=== PATIENT | male | born 1970 | race Caucasian/White ===

== ENCOUNTER 2020-12-25 09:46 | Day surgery (SDC) | payer OTHER ==
--- NOTE | 2020-12-24 12:00 | RAD REPORT ---
EXAM DESCRIPTION: Ariella Tesfaye (2 Views)12/24/2020 11:55 am CLINICAL HISTORY: Preop cardiac catheterization COMPARISON: 2014 FINDINGS: The lungs appear clear of acute infiltrate. The heart is normal size IMPRESSION: No acute abnormalities displayed
[2020-12-25] MEDS ORDERED: NA CHLORIDE 0.9% 500 ML ONE (09:50)
[2020-12-25 10:41] VITALS: TEMP 98.1
[2020-12-25] MEDS ORDERED: HEPA 1000U/500MLS 1,000 UNIT/500 ML BAG IV ONE (11:38)
[2020-12-25] MEDS ORDERED: MIDAZOLAM HCL 5 ML ONE (11:52)
[2020-12-25] MEDS ORDERED: NA CHLORIDE 0.9% 0 ML ONE (11:52)
[2020-12-25] MEDS ORDERED: FENTANYL CITR 100 MCG/2 ML ONE (11:52)
[2020-12-25] MEDS ORDERED: ATROPINE SULF 1 MG/10 ML SYR IV ONE (11:52)
[2020-12-25 12:16] LABS: Absolute Lymphocytes (CBC) 0.8 K/uL (0.7-4.9); Basophils % 0.5 % (0-1.3); Hematocrit 43.7 % (39.6-49.0); Lymphocytes % 15.9 % (15.3-44.8); MPV 8.4 fL (7.6-11.3); RBC Red Blood Cell Count 4.19 M/uL (4.33-5.43)
[2020-12-25 12:20] LABS: Protime INR 0.99
[2020-12-25 12:26] LABS: Potassium 3.9 mmol/L (3.5-5.1)
[2020-12-25 14:42] VITALS: BP 124/69; O2SAT 96
--- NOTE | 2020-12-25 15:03 | OP ---
Surgeon: Osmani Lama MD Ice Platform Supervisor: Mita Peralta. Procedure: Admitted to my service as an outpatient today on 12/25/2020 for selective coronary arteri ogram and left heart catheterization. Indication: Unstable angina. Procedure In Detail: The patient prepped and draped in the routine sterile fashion. A 4-Mohawk vein sheath introduced in the common femoral vein. Versed and fentanyl were given. Seldinger technique was used, a 6-Mohawk sheath in the common femoral artery. Angiography there was normal. Angio-Seal was used to close the case. Tori catheter cannulated the left main and right main respectively. The RCA was normal. Circumflex was normal. Left main was normal. There was a 40% to 50% mid LAD st enosis. No gradient across the aortic valve. Normal left ventricular end-diastolic pressure. No co mplications. Blood loss was 5 cc. The patient tolerated the procedure well. Anesthesia: Total conscious sedation 45 minutes. Postoperative Diagnosis: Kdia-ly-bjzqojtw coronary artery disease. Plan: To continue beta-brant, aspirin, and statin. The patient will remain in for 2 hours in the hospital bedrest. I will see him in the office in 2 weeks. TONIA/LEILA Voice ID: [id number] Report ID: [id number]
== END 2020-12-25 14:42 | disposition home or self-care (01) ==
LOC: CCL 09:46
DX: I25.110 Atherosclerotic heart disease of native coronary artery with unstable angina pectoris (principal); I10 Essential (primary) hypertension; F17.210 Nicotine dependence, cigarettes, uncomplicated; F10.10 Alcohol abuse, uncomplicated; Z86.16 Personal history of COVID-19; Z82.49 Family history of ischemic heart disease and other diseases of the circulatory system
CPT/HCPCS: 85025; 80048; 36415; 85610; 85730; 71046; 93454; C1893; C1760; J2250; J3010; J7040; J1644; 93458; J0583

== ENCOUNTER 2021-10-26 13:06 | Emergency (ER) | payer OTHER, SELFPAY ==
--- OUTSIDE RECORDS SUMMARY | 2021-10-26 13:09 | XMS REPORT | Continuity of Care Document ---
:1970 Author Organization [facility] t Address [address] [place] [address] Dr. Chen [address] [place] [id number] Care Team Providers Name Role Phone Destini Pitt Attending Clinician Unavailable Problems This patient has no known problems. Allergies, Adverse Reactions, Alerts This patient has no known allergies or adverse reactions. Medications This patient has no known medications. Procedures This patient has no known procedures. Encounters Start End Encounter Admission Attending Care Care Encounter Source Date/Time Date/Time Type Type Clinicians Facility Department ID 2021-10-16 Outpatient SweetieSTMAHAMED [facility] [id number] Common 10:24:02 Destini [facility] 2021-10-14 Outpatient ERIKA Pitt [facility] [id number] Common 09:32:01 Destini [facility] 2021-03-13 Outpatient [facility] [id number] Common 14:01:38 [id number] [facility] Results This patient has no known results.
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
[2021-10-26] MEDS ORDERED: CETIRIZINE HCL 5 MG TABLET ONE (13:53)
[2021-10-26] MEDS ORDERED: FAMOTIDINE 20 MG TAB ONE (13:54)
[2021-10-26] MEDS ORDERED: dexAMETHasone 10 MG/ML VIAL ONE (13:54)
[2021-10-26] MEDS ORDERED: predniSONE 20 MG TAB ONE (13:54)
[2021-10-26 15:08] VITALS: TEMP 97.5; O2SAT 99
[2021-10-26 15:12] VITALS: BP 146/96
== END 2021-10-26 14:15 | disposition home or self-care (01) ==
LOC: ER 13:06
DX: R21 Rash and other nonspecific skin eruption (principal); I10 Essential (primary) hypertension; Z88.8 Allergy status to other drugs, medicaments and biological substances; F17.210 Nicotine dependence, cigarettes, uncomplicated
CPT/HCPCS: 96372; 99283; J1100; J7512

== ENCOUNTER 2022-03-10 09:00 | Emergency (ER) | payer OTHER ==
--- OUTSIDE RECORDS SUMMARY | 2022-03-10 09:05 | XMS REPORT | Continuity of Care Document ---
:1970 Author Organization [facility] t Address [address] [place] [address] Dr. Chen [address] [place] [id number] Care Team Providers Name Role Phone Destini [...] Clinicians Facility Department ID 2021-10-16 Outpatient SweetieSTMAHAMED [facility] [id number] Common 10:24:02 Destini [facility] 2021-10-14 Outpatient ERIKA Pitt [facility] [id number] Common 09:32:01 Destini [facility] 2021-03-13 Outpatient [facility] [id number] Common 14:01:38 [id number] [facility] Results This patient has no known results.
[2022-03-10] MEDS ORDERED: dexAMETHasone 10 MG/ML VIAL ONE (09:27)
[2022-03-10] MEDS ORDERED: METOCLOPRAMIDE 10 MG/2mL INJ ONE (09:27)
[2022-03-10] MEDS ORDERED: THIAMINE 200 MG/2 ML INJ ONE (09:27)
[2022-03-10] MEDS ORDERED: KETOROLAC 30 MG/ML INJ ONE (09:27)
[2022-03-10] MEDS ORDERED: DIPHENHYDRAMINE 50 MG/ML VIAL ONE (09:27)
[2022-03-10] MEDS ORDERED: NA CHLORIDE 0.9% 1,000 ML ONE (09:28)
--- NOTE | 2022-03-10 10:12 | RAD REPORT ---
EXAM DESCRIPTION: RAD - Forearm Right - 03/10/2022 9:44 am CLINICAL HISTORY: ANIMAL BITE COMPARISON: No comparisons FINDINGS: No fracture, dislocation or radiopaque foreign body.
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
[2022-03-10 12:10] VITALS: TEMP 98.4
[2022-03-10 12:16] VITALS: BP 138/86; O2SAT 98
== END 2022-03-10 11:28 | disposition home or self-care (01) ==
LOC: ER 09:00
DX: G43.019 Migraine without aura, intractable, without status migrainosus (principal); I10 Essential (primary) hypertension; W54.0XXA Bitten by dog, initial encounter; F17.210 Nicotine dependence, cigarettes, uncomplicated
CPT/HCPCS: 73090; J2765; J3411; J1200; J1100; J7030; 96374; 96375; 99283

== ENCOUNTER 2022-03-14 13:22 | Emergency (ER) | payer OTHER ==
--- OUTSIDE RECORDS SUMMARY | 2022-03-14 13:25 | XMS REPORT | Continuity of Care Document ---
:1970 Author Organization [facility] t Address [address] [place] [address] Dr. Chen [address] [place] [id number] Care Team Providers Name Role Phone Destini [...] Clinicians Facility Department ID 2021-10-16 Outpatient [facility] [id number] Common 10:24:02 Destini [facility] 2021-10-14 Outpatient [facility] [id number] Common 09:32:01 Destini [facility] 2021-03-13 Outpatient [facility] [id number] Common 14:01:38 [id number] [facility] Results This patient has no known results.
[2022-03-14 15:37] LABS: Absolute Lymphocytes (CBC) 1.3 K/uL (0.7-4.9); Lymphocytes % 21.5 % (15.3-44.8); MCV 101.9 fL (80-100); MPV 8.1 fL (7.6-11.3); RBC Red Blood Cell Count 4.22 M/uL (4.33-5.43)
[2022-03-14 15:41] LABS: Urine Blood Negative (Negative); Urine Glucose Negative (Negative); Urine Protein Negative (Negative); Urine pH 6.5 (5.0-7.0)
[2022-03-14 15:44] LABS: Protime INR 1.03
[2022-03-14 16:00] LABS: Barbiturates NEGATIVE (NEGATIVE); Benzodiazepines NEGATIVE (NEGATIVE); Cocaine NEGATIVE (NEGATIVE); METHAMPHETAM NEGATIVE (NEGATIVE); Methadone NEGATIVE (NEGATIVE); Opiates NEGATIVE (NEGATIVE); Phencyclidine NEGATIVE (NEGATIVE); THC Cannibis NEGATIVE (NEGATIVE)
[2022-03-14] MEDS ORDERED: FOLIC ACID 1 MG, MULTIVITAMINS INJ 10 ML, THIAMINE HCL 100 MG in NA CHLORIDE 0.9% 1,000 ML IV ONE (16:00)
[2022-03-14 16:08] LABS: ALT/SGPT 33 U/L (16-61); AST/SGOT 19 U/L (15-37); Albumin 3.5 g/dL (3.4-5.0); Alkaline Phosphatase 84 U/L (45-117); BUN Blood Urea Nitrogen 14 mg/dL (7-18); Bicarbonate 26 mmol/L (21-32); Bilirubin Direct 0.2 mg/dL (0-0.2); Bilirubin Total 0.6 mg/dL (0.2-1.0); Glomerular Filtration Rate 95 ml/min (=/>90); Glucose Level 123 mg/dL (74-106); Potassium 3.3 mmol/L (3.5-5.1); Sodium Level 144 mmol/L (136-145)
[2022-03-14] MEDS ORDERED: DIPHENHYDRAMINE 25 MG TAB/CAP ONE (16:27)
[2022-03-14] MEDS ORDERED: ACETAMINOPHEN 500 MG TAB ONE (16:27)
[2022-03-14] MEDS ORDERED: POTASSIUM CL SA 10 MEQ TAB PO ONE (16:28)
[2022-03-14] MEDS ORDERED: METOCLOPRAMIDE 5 MG TAB ONE (16:28)
[2022-03-14] MEDS ORDERED: KETOROLAC 30 MG/ML INJ ONE (16:41)
[2022-03-14 16:49] LABS: SARS-CoV-2 Antigen Rapid Res Negative (Negative)
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
[2022-03-14 19:56] VITALS: TEMP 98.4
[2022-03-14 19:57] VITALS: O2SAT 96
[2022-03-14 20:00] VITALS: BP 157/105
== END 2022-03-14 19:49 ==
LOC: ER 13:22
DX: R45.851 Suicidal ideations (principal); G43.009 Migraine without aura, not intractable, without status migrainosus; I10 Essential (primary) hypertension; F17.210 Nicotine dependence, cigarettes, uncomplicated; Z20.822 Contact with and (suspected) exposure to COVID-19
CPT/HCPCS: 85025; 80048; 36415; 85610; 80076; 85730; 81003; 80307; 96372; 99285; 87811; G0480 ×3; 93005; J3411; J7030

== ENCOUNTER 2022-12-02 12:32 | Emergency (ER) | payer OTHER ==
--- OUTSIDE RECORDS SUMMARY | 2022-12-02 12:34 | XMS REPORT | Continuity of Care Document ---
:1970 Author Organization [facility] t Address [address] [place] [address] Care Team Providers Name Role Phone Destini Pitt Attending Clinician Unavailable Problems This patient has no known problems. Allergies, Adverse Reactions, Alerts This patient has no known allergies or adverse reactions. Medications This patient has no known medications. Procedures This patient has no known procedures. Encounters Start End Encounter Admission Attending Care Care Encounter Source Date/Time Date/Time Type Type Clinicians Facility Department ID 2022-03-30 Emergency [facility] [id number] [place] - 17:02:06 [facility] 2021-10-[address] [facility] [id number] Common 10:24:02 Destini [id number] [facility] 2021-10-14 Outpatient [facility] [id number] Common 09:32:01 Destini [id number] [facility] 2021-03-[facility] [id number] Common 14:01:38 [id number] [facility] Results This patient has no known results.
[2022-12-02] MEDS ORDERED: METOCLOPRAMIDE 10 MG/2mL INJ ONE (14:00)
[2022-12-02] MEDS ORDERED: DIPHENHYDRAMINE 50 MG/ML VIAL ONE (14:00)
[2022-12-02] MEDS ORDERED: NA CHLORIDE 0.9% 1,000 ML ONE (14:01)
[2022-12-02] MEDS ORDERED: dexAMETHasone 10 MG/ML VIAL ONE (14:01)
[2022-12-02] MEDS ORDERED: KETOROLAC 30 MG/ML INJ ONE (14:01)
--- NOTE | 2022-12-02 14:22 | RAD REPORT ---
EXAM DESCRIPTION: RADChest Single View12/02/2022 1:29 pm CLINICAL HISTORY: COUGH COMPARISON: Chest Pa And Lat (2 Views) dated 12/24/2020; CHEST SINGLE VIEW dated 11/08/2014 TECHNIQUE: Portable AP view of the chest. FINDINGS: The lungs are clear. No pneumothorax or effusion. The cardiomediastinal contours are unrem arkable. IMPRESSION: No acute cardiopulmonary process.
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
[2022-12-02 17:16] VITALS: TEMP 98.6
[2022-12-02 17:17] VITALS: BP 141/78; O2SAT 99
== END 2022-12-02 15:04 | disposition home or self-care (01) ==
LOC: ER 12:32
DX: G43.009 Migraine without aura, not intractable, without status migrainosus (principal); J06.9 Acute upper respiratory infection, unspecified; Z20.822 Contact with and (suspected) exposure to COVID-19; I10 Essential (primary) hypertension
CPT/HCPCS: 96361; 87070; 87081; 87635; 87804 ×2; 71045; 96375; 96374; 99284; J2765; J1200; J1100; J7030

== ENCOUNTER 2023-11-30 16:09 | Emergency (ER) | payer OTHER ==
[2023-11-30] MEDS ORDERED: dexAMETHasone 10 MG/ML VIAL ONE (16:39)
[2023-11-30] MEDS ORDERED: KETOROLAC 30 MG/ML INJ ONE (16:39)
[2023-11-30] MEDS ORDERED: FAMOTIDINE 20 MG TAB ONE (16:39)
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
[2023-11-30 19:28] VITALS: BP 147/96; TEMP 98.4; O2SAT 94
== END 2023-11-30 17:04 | disposition home or self-care (01) ==
LOC: ER 16:09
DX: L50.9 Urticaria, unspecified (principal); F17.210 Nicotine dependence, cigarettes, uncomplicated
CPT/HCPCS: 96372; 99284; J1100